=== PATIENT | female | born 1980 | race Caucasian/White ===

== ENCOUNTER 2023-03-21 11:45 | Emergency (ER) | payer MEDICAID ==
[~2023-03-21] VITALS: Ht 160 cm; Wt 53.0 kg
[2023-03-21] MEDS ORDERED: NS IV 1000 ML 1,000 ML IV STA (12:04)
[2023-03-21 12:13] LABS: BASOPHILS # (AUTO) 0.1 10^3/uL (0.0-0.1); BASOPHILS % (AUTO) 1 % (0-10); EOSINOPHILS # (AUTO) 0.2 10^3/uL (0.0-0.3); EOSINOPHILS % (AUTO) 3 % (0-10); HEMATOCRIT 38 % (35-52); HEMOGLOBIN 12.3 g/dL (11.5-16.0); LYMPHOCYTES # (AUTO) 1.1 10^3/uL (1.0-4.0); LYMPHOCYTES % (AUTO) 18 % (12-44); MEAN CORPUSCULAR HEMOGLOBIN 26 pg (25-34); MEAN CORPUSCULAR HGB CONC 32 g/dL (32-36); MEAN CORPUSCULAR VOLUME 81 fL (80-99); MONOCYTES # (AUTO) 0.7 10^3/uL (0.0-1.0); MONOCYTES % (AUTO) 11 % (0-12); NEUTROPHILS # (AUTO) 4.1 10^3/uL (1.8-7.8); NEUTROPHILS % (AUTO) 67 % (42-75); PLATELET COUNT 289 10^3/uL (130-400); WHITE BLOOD COUNT 6.1 10^3/uL (4.3-11.0)
[2023-03-21] MEDS ORDERED: NS 100 ML (IVPB) BAG IV ONE (12:15)
[2023-03-21] MEDS ORDERED: IOHEXOL 350 MG/ML 100 ML (OMNIPAQUE 350) VIAL IV ONE (12:15)
[2023-03-21] MEDS ORDERED: ONDANSETRON INJECTION 4 MG/2 ML (SDV) IVP ONE (12:15)
[2023-03-21] MEDS ORDERED: HOLD METFORMIN - RECEIVED CONTRAST 20 ML VIAL IV SCH (12:15)
--- NOTE | 2023-03-21 12:15 | ED Abdominal Pain ---
General Chief Complaint: Abdominal/GI Problems Stated Complaint: N/V/D - ABD PAIN Nursing Triage Note: ARRIVED VIA AMB WITH COMPLAINTS OF N/V/D ABD PAIN X2 WEEKS. Source of Information: Patient Exam Limitations: No Limitations History of Present Illness Date Seen by Provider: Mar 21, 2023 Time Seen by Provider: 12:15 Initial Comments Patient is a 43-year-old female who presents to the ED for abdominal pain vomiting and diarrhea. Symptoms started 2 weeks ago. She states she has days where she may vomit 5-10 times. Denies of any hematemesis or bile. She states when she eats she has at least a episode of loose stool without any blood or mucus. Diarrhea 1 or 2 times a day. Generalized abdominal cramping. Episodes of sharp pain with generalized cramping and bloating. She believes certain foods make this worse. She saw her primary care physician a week ago diagnosed with enteritis was given Zofran without much improvement. No history of previous abdominal surgery. She does work in a vet clinic. Potential exposure to infection such as parasites according to patient. She denies history inflammatory bowel disease. No history of previous abdominal surgery. She states she is urinating without any difficulties. Last menstrual cycle 3 weeks ago. She denies cough, runny nose, sore throat, chest pain, shortness of breath, rash, fever. She reports weakness and fatigue. Allergies and Home Medications Allergies Coded Allergies: No Known Drug Allergies (Unverified , 03/21/23) Patient Home Medication List Home Medication List Reviewed: Yes Ciprofloxacin HCl (Ciprofloxacin HCl) 500 Mg Tablet, 500 MG PO BID Prescribed by: JOANNA PAGAN on 03/21/23 1429 Metronidazole (Metronidazole) 500 Mg Tablet, 500 MG PO TID Prescribed by: JOANNA PAGAN on 03/21/23 1429 Review of Systems Review of Systems Constitutional: No chills, No diaphoresis, No fever; malaise, weakness EENTM: No Blurred Vision, No Ear Pain, No Mouth Pain Respiratory: Denies Cough Cardiovascular: Denies Chest Pain Gastrointestinal: Abdominal Pain, Diarrhea, Nausea; Denies Vomiting Genitourinary: Denies Burning, Denies Discharge, Denies Flank Pain Musculoskeletal: No back pain Skin: No change in color, No change in hair/nails All Other Systems Reviewed Negative Unless Noted: Yes Past Ysatkdy-[id number]-Bfrvhq Hx Patient Social History Tobacco Use?: No Substance use?: No Alcohol Use?: No Past Medical History Last Menstrual Period: Feb 28, 2023 Physical Exam Vital Signs Vital Signs - First Documented 03/21/23 11:50 Temp 37.1 Pulse 88 Resp 16 B/P (MAP) 113/79 (90) Pulse Ox 100 O2 Delivery Room Air Capillary Refill : Less Than 3 Seconds Height/Weight/BMI Height: '" Weight: lbs. oz. 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, no motor/sensory deficits, alert, normal mood/affect, oriented x 3 Progress/Results/Core Measures Results/Orders Lab Results Laboratory Tests Test 03/21/23 11:55 03/21/23 12:12 03/21/23 12:13 Range/Units White Blood Count 6.1 4.3-11.0 10^3/uL Red Blood Count 4.72 3.80-5.11 10^6/uL Hemoglobin 12.3 11.5-16.0 g/dL Hematocrit 38 35-52 % Mean Corpuscular Volume 81 80-99 fL Mean Corpuscular Hemoglobin 26 25-34 pg Mean Corpuscular Hemoglobin Concent 32 32-36 g/dL Red Cell Distribution Width 13.2 10.0-14.5 % Platelet Count 289 130-400 10^3/uL Mean Platelet Volume 10.0 9.0-12.2 fL Immature Granulocyte % (Auto) 0 % Neutrophils (%) (Auto) 67 42-75 % Lymphocytes (%) (Auto) 18 12-44 % Monocytes (%) (Auto) 11 0-12 % Eosinophils (%) (Auto) 3 0-10 % Basophils (%) (Auto) 1 0-10 % Neutrophils # (Auto) 4.1 1.8-7.8 10^3/uL Lymphocytes # (Auto) 1.1 1.0-4.0 10^3/uL Monocytes # (Auto) 0.7 0.0-1.0 10^3/uL Eosinophils # (Auto) 0.2 0.0-0.3 10^3/uL Basophils # (Auto) 0.1 0.0-0.1 10^3/uL Immature Granulocyte # (Auto) 0.0 0.0-0.1 10^3/uL Sodium Level 136 135-145 MMOL/L Potassium Level 3.6 3.6-5.0 MMOL/L Chloride Level 107 98-107 MMOL/L Carbon Dioxide Level 22 21-32 MMOL/L Anion Gap 7 5-14 MMOL/L Blood Urea Nitrogen 7 7-18 MG/DL Creatinine 0.78 0.60-1.30 MG/DL Estimat Glomerular Filtration Rate 97 BUN/Creatinine Ratio 9 Glucose Level 93 70-105 MG/DL Calcium Level 9.0 8.5-10.1 MG/DL Corrected Calcium 8.8 8.5-10.1 MG/DL Total Bilirubin 0.4 0.1-1.0 MG/DL Aspartate Amino Transf (AST/SGOT) 17 5-34 U/L Alanine Aminotransferase (ALT/SGPT) 17 0-55 U/L Alkaline Phosphatase 63 40-136 U/L C-Reactive Protein High Sensitivity 0.05 0.00-0.50 MG/DL Total Protein 6.9 6.4-8.2 GM/DL Albumin 4.3 3.2-4.5 GM/DL Lipase 26 8-78 U/L Urine Color YELLOW Urine Clarity CLEAR Urine pH 8.5 5-9 Urine Specific [place] 1.015 L 1.016-1.022 Urine Protein NEGATIVE NEGATIVE Urine Glucose (UA) NEGATIVE NEGATIVE Urine Ketones NEGATIVE NEGATIVE Urine Nitrite NEGATIVE NEGATIVE Urine Bilirubin NEGATIVE NEGATIVE Urine Urobilinogen 0.2 < = 1.0 MG/DL Urine Leukocyte Esterase NEGATIVE NEGATIVE Urine RBC (Auto) TRACE H NEGATIVE Urine RBC RARE /HPF Urine WBC RARE /HPF Urine Squamous Epithelial Cells 5-10 /HPF Urine Crystals NONE /LPF Urine Bacteria FEW H /HPF Urine Casts NONE /LPF Urine Mucus NEGATIVE /LPF Urine Culture Indicated NO Urine Test NEGATIVE NEGATIVE My Orders Orders - ROBERTA HSU Ua Culture If Indicated (03/21/23 11:53) Cbc With Automated Diff (03/21/23 12:04) Comprehensive Metabolic Panel (03/21/23 12:04) Lipase (03/21/23 12:04) Ns Iv 1000 Ml (Ns Iv 1000 Ml) (03/21/23 12:04) Ondansetron Injection (Ondansetron Inj (03/21/23 12:15) Hs C Reactive Protein (03/21/23 12:04) Ct Abdomen/Pelvis W (03/21/23 12:04) Iohexol Injection (Omnipaque 350 Mg/Ml 1 (03/21/23 12:15) Received Contrast (Hold Metformin- Contr (03/21/23 12:15) Ns (Ivpb) 100 Ml (Sodium Chloride 0.9% 1 (03/21/23 12:15) Hcg,Qualitative Urine (03/21/23 12:19) Stool Culture (03/21/23 14:27) Fecal Wbc (03/21/23 14:27) C Difficile Ag + Toxin A/B. (03/21/23 14:27) Parasite Complete Exam Stool (03/21/23 14:27) Medications Given in ED Current Medications Medications Dose Ordered Sig/Regino Route Start Time Stop Time Status Last Admin Dose Admin Iohexol 75 ml ONCE ONCE IV 03/21/23 12:15 03/21/23 12:16 DC 03/21/23 13:04 59 ML Ondansetron HCl 4 mg ONCE ONCE IVP 03/21/23 12:15 03/21/23 12:16 DC 03/21/23 12:16 4 MG Sodium Chloride 100 ml ONCE ONCE IV 03/21/23 12:15 03/21/23 12:16 DC 03/21/23 13:04 80 ML Vital Signs/I&O 03/21/23 03/21/23 11:50 14:31 Temp 37.1 Pulse 88 77 Resp 16 16 B/P (MAP) 113/79 (90) 127/78 Pulse Ox 100 98 O2 Delivery Room Air Room Air Blood Pressure Mean: 90 Departure Communication (PCP) Differential diagnosis, gastroenteritis, colitis, diverticulitis, infectious diarrhea. Patient is a 43-year-old female who presents the ED for abdominal pain vomiting diarrhea. Symptoms over the past 2 weeks. No recent travels or surgeries. Denies of any recent antibiotic use. She does work in a veterinary clinic. Diagnosed with enteritis by her primary care physician was given Zofran without much improvement. States the diarrhea is getting worse. No bloody mucousy stools, fever chills, cough sore throat. She does have some generalized abdominal tenderness. Due to continuous diarrhea and vomiting stool cultures was ordered with CBC, CMP, lipase. CBC, CMP grossly unremarkable. Urinalysis negative for or infection. CT abdomen pelvis was positive for en teritis. Patient was not able to provide a stool culture. She is concern for potential parasite. Denies of any concern for abnormal stools. Sent a outpatient lab for stool cultures, C. difficile, ova. Due to continued diarrhea will discharge with Cipro and Flagyl prophylactically for potential infectious etiology. No history inflammatory bowel disease. Recommend staying hydrated. Provided a cup to provide a stool sample. She does not appear toxic. Clear liquid diet for the next 2 or 3 days. She has Zofran. If any worsening symptoms return back to the ED. Impression Primary Impression: Abdominal pain Disposition: HOME, SELF-CARE Condition: Stable Departure-Patient Inst. Decision time for Depature: 14:27 Referrals: ASHLEY CHAVIAR MD (PCP/Family) Primary Care Physician Patient Instructions: Abdominal Pain, Adult ED Add. Discharge Instructions: Take Cipro and Flagyl as prescribed. Do not drink alcohol. Recommend probiotics. Clear liquid diet for the next few days. Continue with Zofran. Follow-up your PCP for further evaluation. Provided cup for stool culture which may be return back to the lab. All discharge instructions reviewed with patient and/or family. Voiced understanding. Scripts Metronidazole (Metronidazole) 500 Mg Tablet 500 MG PO TID for 7 Days, #21 TAB Prov: ROBERTA HSU 03/21/23 Ciprofloxacin HCl (Ciprofloxacin HCl) 500 Mg Tablet 500 MG PO BID for 5 Days, #10 TAB Prov: ROBERTA HSU 03/21/23 Work/School Note: Work Release Form Date Seen in the Emergency Department: Mar 21, 2023 Other Restrictions Listed Below: Diarrhea may be contagious. Recommend good hand hygiene ROBERTA HSU Mar 21, 2023 12:14
[2023-03-21 12:29] LABS: ALBUMIN 4.3 GM/DL (3.2-4.5); BILIRUBIN,TOTAL 0.4 MG/DL (0.1-1.0); CREATININE SERUM 0.78 MG/DL (0.60-1.30); POTASSIUM 3.6 MMOL/L (3.6-5.0); TOTAL PROTEIN 6.9 GM/DL (6.4-8.2)
[2023-03-21 12:43] LABS: COLOR,URINE YELLOW
[2023-03-21 12:44] LABS: CLARITY,URINE CLEAR; PH,URINE 8.5 (5-9)
[2023-03-21 12:45] LABS: BACTERIA,URINE FEW /HPF; BILIRUBIN,URINE NEGATIVE (NEGATIVE); GLUCOSE, URINE (UA) NEGATIVE (NEGATIVE); KETONES,URINE NEGATIVE (NEGATIVE); LEUKOCYTE ESTERASE ,URINE NEGATIVE (NEGATIVE); NITRITE,URINE NEGATIVE (NEGATIVE); PROTEIN,URINE NEGATIVE (NEGATIVE); RBC,URINE RARE /HPF; WBC,URINE RARE /HPF
--- NOTE | 2023-03-21 14:05 | Diagnostic Imaging Report ---
INDICATION: Nausea, vomiting, and diarrhea x 2 weeks. EXAMINATION: CT abdomen and pelvis with contrast on 03/21/2023. FINDINGS: The lung bases are unremarkable. There is no acute process within the liver or spleen. The gallbladder is normal. The pancreas is unremarkable. The adrenal glands are unremarkable. The kidneys are normal. There is diffuse slightly prominent small bowel loops, fluid-filled in nature, suggesting possible enteritis. There is no obstructive process. The colon appears unremarkable. The appendix is normal. There is a cystic collection in the right adnexa measuring 2.3 cm in greatest dimension, presumably a physiological corpus luteal cyst associated with the right ovary. If there is pelvic pain, sonography could provide further characterization. There is no ascites. No abscess or free air. The uterus is prominent with underlying fibroids likely. There is no acute osseous abnormality. IMPRESSION: 1. Findings suspicious for enteritis. 2. Suspected fibroid uterus, better characterized sonographically if clinically indicated, with a cystic collection in the right adnexa which is presumably ovarian but also better characterized sonographically. 3. The appendix is unremarkable. Dictated by: Dictated on workstation # [id number]
[2023-03-21] MEDS ORDERED: CIPR500T5 PO (14:29)
[2023-03-21] MEDS ORDERED: METR-145 PO (14:29)
[2023-03-21 14:31] VITALS: BP 127/78
== END 2023-03-21 14:31 | disposition home or self-care (01) ==
LOC: EDUNIT# 11:45 → ER 11:46
DX: R10.84 Generalized abdominal pain (principal); R11.2 Nausea with vomiting, unspecified
CPT/HCPCS: 36415; 74177; 80053; 81000; 83690; 84703; 85025; 86141